=== PATIENT | female | born 1995 | race American Indian/Alaskan Native ===

== ENCOUNTER 2018-04-12 11:22 | Emergency (ER) | payer SELFPAY ==
[2018-04-12 11:51] VITALS: BP 114/64
[2018-04-12 12:27] LABS: Bacteria,Urine 2+ /HPF (Negative); Bilirubin,Urine NEG (Negative); Blood,Urine NEG (Negative); Color,Urine Amber (Yellow); Mucus,Urine 3+ /HPF
[2018-04-12 12:28] LABS: HCG Qualitative,Urine Negative (Negative)
--- NOTE | 2018-04-12 12:52 | Emergency Department Report ---
<CABRERA MCBRIDE - Last Filed: 04/12/18 13:24> ED Female HPI - General Chief complaint: Urogenital-Female Stated complaint: VAGINA DISCOMFORT/ABD PAIN Time Seen by Provider: 04/12/18 11:57 - Related Data Previous Rx's Medication Instructions Recorded Last Taken Type Sulfamethoxazole/Trimethoprim 1 each PO Q12H #14 tablet 04/12/18 Unknown Rx [Bactrim Ds Tablet] metroNIDAZOLE [Flagyl] 500 mg PO Q12HR #14 tab 04/12/18 Unknown Rx Allergies Allergy/AdvReac Type Severity Reaction Status Date / Time No Known Allergies Allergy Verified 04/12/18 11:48 ED Past Medical Hx - Medications Home Medications: Home Medications Medication Instructions Recorded Confirmed Last Taken Type Sulfamethoxazole/Trimethoprim 1 each PO Q12H #14 tablet 04/12/18 Unknown Rx [Bactrim Ds Tablet] metroNIDAZOLE [Flagyl] 500 mg PO Q12HR #14 tab 04/12/18 Unknown Rx ED Disposition Clinical Impression: Bacterial vaginosis, Trichomonas vaginitis, Possible exposure to STD UTI (urinary tract infection) Qualifiers: Urinary tract infection type: site unspecified Hematuria presence: with hematuria Qualified Code(s): N39.0 - Urinary tract infection, site not specified; R31.9 - Hematuria, unspecified Disposition: DC-01 TO HOME OR SELFCARE Is pt being admited?: No Does the pt Need Aspirin: No Condition: Stable Instructions: Bacterial Vaginosis (ED), Trichomoniasis (ED), Metronidazole (By mouth), Urinary Tract Infection in Women (ED) Additional Instructions: Follow-up with a primary care doctor in 3-5 days or if symptoms worsen and continue return to emergency room as soon as possible. Return in 3-5 days as days for gonorrhea and chlamydia results. Do not consume any alcohol while taking antibiotics. Prescriptions: metroNIDAZOLE [Flagyl] 500 mg PO Q12HR #14 tab Sulfamethoxazole/Trimethoprim [Bactrim Ds Tablet] 1 each PO Q12H #14 tablet Referrals: PRIMARY CARE, [Primary Care Provider] - 3-5 Days ELLIOTT FAROOQ MD [Staff Physician] - 3-5 Days [facility] [Outside] - 3-5 Days Forms: Work/School Release Form(ED) <JARRELL AGARWAL - Last Filed: 04/12/18 13:38> ED Female HPI - General Source: patient Mode of arrival: Ambulatory Limitations: No Limitations - History of Present Illness Initial comments: This is a 23-year-old female nontoxic, well nourished in appearance, no acute si gns of distress presents to the ED with c/o of vaginal discharge. Patient denies any vaginal pain or swelling. Patient denies any vaginal ulcers or lesions. Patient denies any nausea, vomiting, chest pain, shortness of breathe, fever, chills, headache, back pain, numbness, tingling, stiff neck. Patient denies any urinary symptoms. Patient denies any allergies or PMH. MD Complaint: vaginal discharge -: week(s) (1) Radiation: non-radiating Severity scale (0 -10): 0 Improves with: none Worsens with: none Are you Now?: No Associated Symptoms: vaginal discharge. denies: vaginal bleeding, abdominal pain, nausea/vomiting, fever/chills, headaches, loss of appetite, dysuria, hematuria, rash, seizure, shortness of breath, syncope, weakness - Related Data Sexually active: Yes ED Review of Systems ROS: Stated complaint: VAGINA DISCOMFORT/ABD PAIN Other details as noted in HPI Constitutional: denies: chills, fever Eyes: denies: eye pain, eye discharge, vision change ENT: denies: ear pain, throat pain Respiratory: denies: cough, shortness of breath, wheezing Cardiovascular: denies: chest pain, palpitations Endocrine: no symptoms reported Gastrointestinal: denies: abdominal pain, nausea, diarrhea Genitourinary: discharge. denies: urgency, dysuria, frequency, hematuria Musculoskeletal: denies: back pain, joint swelling, arthralgia Skin: denies: rash, lesions Neurological: denies: headache, weakness, paresthesias Psychiatric: denies: anxiety, depression Hematological/Lymphatic: denies: easy bleeding, easy bruising ED Past Medical Hx - Past Medical History Previous Medical History?: No - Surgical History Past Surgical History?: No - Social History Smoking Status: Never Smoker Substance Use Type: None ED Physical Exam - General Limitations: No Limitations General appearance: alert, in no apparent distress - Head Head exam: Present: atraumatic, normocephalic - Eye Eye exam: Present: normal appearance - Neck Neck exam: Present: normal inspection, full ROM - External exam: Present: normal external exam, other (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 Absent: normal speculum exam, erythema, vaginal discharge, vaginal bleeding, foreign body, tissue, laceration Bi-manual exam: Present: normal bi-manual exam, other (commercial [employer] [place] safety attendant present in exam). Absent: cervical motion tendernes, adnexal tenderness, adnexal mass, uterine enlargement, uterine tenderness - Extremities Exam Extremities exam: Present: normal inspection, full ROM - Back Exam Back exam: Present: normal inspection, full ROM - Neurological Exam Neurological exam: Present: alert, oriented X3 - Psychiatric Psychiatric exam: Present: normal affect, normal mood - Skin Skin exam: Present: warm, dry, intact, normal color. Absent: rash ED Course Vital Signs 04/12/18 11:48 Temperature 98.6 F Pulse Rate 81 Respiratory 16 Rate Blood Pressure 114/64 O2 Sat by Pulse 96 Oximetry - Reevaluation(s) Reevaluation #1: 04/12/18 13:34 Patient is speaking in full sentences with no signs of distress noted. ED Medical Decision Making - Medical Decision Making This is a 23-year-old female that presents with possible STD, BV, trich. Patient is stable was examined by me. There is no abdominal tenderness. No pelvic pain. UA obtained. Wet prep obtained. Gonorrhea chlamydia swab pending. Patient was instructed to return in 2 days for GC results. Patient wanted empirical treatment so patient received 250mg Rocephin and 1 g of azithromycin by mouth. Patient was instructed to Follow-up with a primary care doctor in 3-5 days or if symptoms worsen and continue return to emergency room as soon as possible. At time of discharge, the patient does not seem toxic or ill in appearance. No acute signs of distress noted. Patient agrees to discharge treatment plan of care. No further questions noted by the patient. Critical care attestation.: If time is entered above; I have spent that time in minutes in the direct care of this critically ill patient, excluding procedure time. ED Disposition Is pt being admited?: No Does the pt Need Aspirin: No
[2018-04-12] MEDS ORDERED: ROCEPHIN IM ONE (13:29)
[2018-04-12] MEDS ORDERED: XYLOCAINE 1% MPF 5 mL INFILTRATI ONE (13:29)
[2018-04-12] MEDS ORDERED: ZITHROMAX PO ONE (13:29)
== END 2018-04-12 14:13 | disposition home or self-care (01) ==
LOC: ED 11:22
DX: N39.0 Urinary tract infection, site not specified (principal); R31.9 Hematuria, unspecified; N76.0 Acute vaginitis; B96.89 Other specified bacterial agents as the cause of diseases classified elsewhere
CPT/HCPCS: 81001; 81025; 87210; 87591; 96372; 99284; J0696